=== PATIENT | female | born 1980 | race African-American/Black ===

== ENCOUNTER 2018-04-20 19:02 | Emergency (ER) | payer OTHER ==
[2018-04-20 19:10] VITALS: BP 150/104; PULSE 77; TEMP 97.9; BMI 50.9
--- NOTE | 2018-04-20 19:52 | PDOC ---
History of Present Illness - General History Source: Patient Exam Limitations: No Limitations - History of Present Illness Initial Comments: 04/20/18 20:28 The patient is a 37 year old female, with a significant past medical history of 2 miscarriages and had a ectopic , who presents to the ED complaining of vaginal bleeding. Patient reports she felt a sharp pain last week and intermittent blood clots for the past few days. Patient reports she was December of 2017 and experiences heavy bleeding with presence of clots in January. Patient states she thought it was a miscarriage and did not got to the [facility]. Patient states abnormal menstrual period in February. The patient denies chest pain, shortness of breath, headache or dizziness. Denies fever, chills, nausea, vomiting, diarrhea and constipation. Denies dysuria, frequency, urgency. Allergies: None <Buddy Michel - Last Filed: 04/20/18 20:28> <Francie Singer - Last Filed: 04/20/18 22:11> - General Chief Complaint: Vaginal Bleeding Stated Complaint: CRAMPING Time Seen by Provider: 04/20/18 19:29 Past History <Buddy Michel - Last Filed: 04/20/18 20:28> - Past Medical History Anemia: No Asthma: No Cancer: No Cardiac Disorders: No CVA: No COPD: No CHF: No Dementia: No Diabetes: No GI Disorders: No Disorders: No HTN: No Hypercholesterolemia: No Liver Disease: No Seizures: No Thyroid Disease: No - Surgical History Orthopedic Surgery: Yes - Reproductive History (#): 3 Para: 0 Cervical CA: No Dysfunctional Uterine Bleeding: No Ectopic : No Endometrial CA: No Polycystic Ovaries: No Tubal Ligation: No Spontaneous : 2 - Suicide/Smoking/Psychosocial Hx Smoking History: Never smoked Have you smoked in the past 12 months: No Information on smoking cessation initiated: No Hx Alcohol Use: No Drug/Substance Use Hx: No Substance Use Type: None <Francie Singer - Last Filed: 04/20/18 22:11> - Past Medical History Allergies/Adverse Reactions: Allergies Allergy/AdvReac Type Severity Reaction Status Date / Time No Known Drug Allergies Allergy Verified 11/24/15 18:37 Home Medications: Ambulatory Orders Nitrofurantoin Monohyd/M-Cryst [Macrobid -] 100 mg PO BID #14 capsule 04/20/18 Review of Systems - Review of Systems Able to Perform ROS?: Yes Comments:: 04/20/18 20:28 GENERAL/CONSTITUTIONAL: No fever or chills. No weakness. HEAD, EYES, EARS, NOSE AND THROAT: No change in vision. No ear pain or discharge. No sore throat. CARDIOVASCULAR: No chest pain or shortness of breath RESPIRATORY: No cough, wheezing, or hemoptysis. GASTROINTESTINAL: (+) Abdominal cramping. No nausea, vomiting, diarrhea or constipation. GENITOURINARY: (+) Vaginal bleeding. No dysuria, frequency, or change in urination. MUSCULOSKELETAL: No joint or muscle swelling or pain. No neck or back pain. SKIN: No rash NEUROLOGIC: No headache, vertigo, loss of consciousness, or change in strength/ sensation. ENDOCRINE: No increased thirst. No abnormal weight change HEMATOLOGIC/LYMPHATIC: No anemia, easy bleeding, or history of blood clots. ALLERGIC/IMMUNOLOGIC: No hives or skin allergy. <Buddy Michel - Last Filed: 04/20/18 20:28> *Physical Exam - Vital Signs Last Vital Signs Temp Pulse Resp BP Pulse Ox 97.9 F 77 20 150/104 99 04/20/18 19:07 04/20/18 19:07 04/20/18 19:07 04/20/18 19:07 04/20/18 19:07 - Physical Exam Comments: 04/20/18 20:29 GENERAL: +Obese. Awake, alert, and fully oriented, in no acute distress HEAD: No signs of trauma, normocephalic, atraumatic EYES: PERRLA, EOMI, sclera anicteric, conjunctiva clear ENT: Auricles normal inspection, hearing grossly normal, nares patent, oropharynx clear without exudates. Moist mucosa NECK: Normal ROM, supple, no lymphadenopathy, JVD, or masses LUNGS: No distress, speaks full sentences, clear to auscultation bilaterally HEART: Regular rate and rhythm, normal S1 and S2, no murmurs, rubs or gallops, peripheral pulses normal and equal bilaterally. ABDOMEN: Soft, nontender, normoactive bowel sounds. No guarding, no rebound. No masses GENITOURINARY:+Ox is close, +blood in vault. No cervical motion tenderness, no adnexal tenderness. EXTREMITIES : Normal inspection, Normal range of motion, no edema. No clubbing or cyanosis. NEUROLOGICAL: Cranial nerves II through XII grossly intact. Normal speech, normal gait, no focal sensorimotor deficits SKIN: Warm, Dry, normal turgor, no rashes or lesions noted <Buddy Michel - Last Filed: 04/20/18 20:28> - Vital Signs Last Vital Signs Temp Pulse Resp BP Pulse Ox 97.9 F 77 20 150/104 99 04/20/18 19:07 04/20/18 19:07 04/20/18 19:07 04/20/18 19:07 04/20/18 19:07 <Francie Singer - Last Filed: 04/20/18 22:11> ED Treatment Course - LABORATORY CBC & Chemistry Diagram: 04/20/18 20:18 04/20/18 20:18 <Francie Singer - Last Filed: 04/20/18 22:11> Medical Decision Making - Medical Decision Making 04/20/18 21:49 37yo female with +preg test in December, now with breast tenderness and vag bleeding -, had bleeding in January and figured she passed her preg -no bleeding in february and now bleeding intermittently this week -concerned she may be -has not seen a FORMULATION CHEMIST -hx of 2 miscarriages and 1 ectopic in the past -will send labs, tvus -will check serum hcg -ua -will monitor and reassess -R adnexal ttp 04/20/18 22:05 hcg negative tvus without acute findings pt feeling better discussed labs and imaging pt follows with Dr. Lowry - states she has had irregular menstrual cycles in the past, but states she has been regular over the last few months. Discussed all reasons to return to the ED and need for followup. answered all quesitons. 04/20/18 22:07 B+ on labs 04/20/18 22:08 pt with a UTI on labs will start macrobid <Francie Singer - Last Filed: 04/20/18 22:11> *DC/Admit/Observation/Transfer - Attestations Scribe Attestion: 04/20/18 20:37 Documentation prepared by Buddy Michel, acting as electromedical equipment technician for Francie Singer DO <MariluBuddy Jennifer - Last Filed: 04/20/18 20:28> - Discharge Dispostion Decision to Admit order: No - Attestations Physician Attestion: 04/20/18 22:11 I, Dr. Francie Singer DO, attest that this document has been prepared under my direction and personally reviewed by me in its entirety. I further attest, that it accurately reflects all work, treatment, procedures and medical decision -making performed by me. <Francie Singer - Last Filed: 04/20/18 22:11> Diagnosis at time of Disposition: Dysfunctional uterine bleeding, UTI (urinary tract infection) - Discharge Dispostion Disposition: HOME Condition at time of disposition: Stable - Prescriptions Prescriptions: Nitrofurantoin Monohyd/M-Cryst [Macrobid -] 100 mg PO BID #14 capsule - Referrals Referrals: Moncho Martinez MD [Primary Care Provider] - Mare Lowry DO [Staff Physician] - - Patient Instructions Printed Discharge Instructions: DI for Abnormal Uterine Bleeding, DI for Urinary Tract Infection (UTI) Additional Instructions: Please take all medications as prescribed. Please follow up with your tool maker. Please return to the ED with any further concerns or complaints.
[2018-04-20 20:40] LABS: BASO % 0.4 % (0-2.0); EOS % 0.5 % (0-4.5); HEMOGLOBIN 13.2 GM/dL (10.7-15.3); MCH 27.9 pg (25.7-33.7); MCHC 33.1 g/dl (32.0-36.0); MEAN CELL VOLUME 84.4 fl (80-96); MEAN PLT VOLUME 7.9 fl (7.5-11.1); MONO % 5.7 % (3.8-10.2); NEUT % 57.4 % (42.8-82.8); PLATELET COUNT 422 K/MM3 (134-434); RBC 4.74 M/mm3 (3.60-5.2); RDW 14.7 % (11.6-15.6)
[2018-04-20 21:21] LABS: ALBUMIN 3.9 g/dl (3.4-5.0); ALK PHOS 96 U/L (45-117); ANION GAP 8 (8-16); BILIRUBIN,TOTAL 0.3 mg/dL (0.2-1.0); BLOOD UREA NITROGEN 9 mg/dL (7-18); CALCIUM 8.5 mg/dL (8.5-10.1); CHLORIDE 109 mmol/L (98-107); CO2 26 mmol/L (21-32); GLUCOSE,RANDOM 84 mg/dL (74-106); POTASSIUM 3.9 mmol/L (3.5-5.1); SGOT/AST 13 U/L (15-37); SGPT/ALT 20 U/L (12-78); SODIUM 143 mmol/L (136-145); TOT PROT 8.1 g/dl (6.4-8.2)
[2018-04-20 21:27] LABS: URINE APPEARANCE SLCLOUDY; URINE BILIRUBIN NEGATIVE (<2.0 mg/dL); URINE COLOR YELLOW; URINE GLUCOSE (UA) NEGATIVE (NEGATIVE); URINE KETONE NEGATIVE (NEGATIVE); URINE LEUK ESTERASE TRACE (NEGATIVE); URINE NITRITE NEGATIVE (NEGATIVE); URINE PROTEIN NEGATIVE (NEGATIVE); URINE UROBILINOGEN NEGATIVE mg/dL (0.2-1.0)
[2018-04-20 21:34] LABS: EPI CELLS MODERATE /HPF (FEW); URINE BACTERIA RARE /hpf (NONE SEEN); URINE MUCUS RARE
[2018-04-20] MEDS ORDERED: NITROFURANTOIN MACROCRYSTAL 50 MG CAPSULE (FP) PO SCH (22:15)
[2018-04-20] MEDS ORDERED: NITROFURANTOIN MACROCRYSTAL 50 MG CAPSULE (FP) ONE (22:24)
== END 2018-04-20 22:27 | disposition home or self-care (01) ==
LOC: JER 19:02
DX: N39.0 Urinary tract infection, site not specified (principal); N93.8 Other specified abnormal uterine and vaginal bleeding; E66.9 Obesity, unspecified; Z68.43 Body mass index [BMI] 50.0-59.9, adult
CPT/HCPCS: 36415; 76817-TC; 80053; 81003; 81015; 84702; 85025; 86850; 86900; 86901; 99283-25

== ENCOUNTER 2022-06-17 11:08 | Day surgery (SDC) | payer OTHER ==
[2022-06-09 15:22] VITALS: BMI 48.6
[2022-06-17 13:11] VITALS: BP 117/68; PULSE 78; RESP 16; TEMP 97
== END 2022-06-17 13:08 | disposition home or self-care (01) ==
LOC: FASU-ENDO 11:08
PROVIDERS: ATTEND Internal Medicine Gastroenterology
PROC: 3E0H8KZ Introduction of Other Diagnostic Substance into Lower GI, Via Natural or Artificial Opening Endoscopic (ICD-10-PCS; 2022-06-17)
PROC: 0DBL8ZX Excision of Transverse Colon, Via Natural or Artificial Opening Endoscopic, Diagnostic (ICD-10-PCS; principal; 2022-06-17 12:01)
DX: Z12.11 Encounter for screening for malignant neoplasm of colon (principal); D12.3 Benign neoplasm of transverse colon; K64.1 Second degree hemorrhoids
CPT/HCPCS: 84703; 88305-TC